=== PATIENT | male | born 1970 | race Caucasian/White ===

== ENCOUNTER 2019-07-28 05:24 | Inpatient (IN) ==
[2019-07-24 09:02] LABS: HEMATOCRIT 47.2 % (42.0-52.0); HEMOGLOBIN 15.5 g/dL (14.0-18.0); MCH 29.2 PG (27-31); MCHC 32.8 g/dL (33-37); MCV 89.1 FL (81-99); MPV 9.2 FL (7.4-10.4); RBC 5.3 XMIL (4.7-6.1); RDW 14.2 % (11.5-14.5); WBC 8.88 X1000 (4.8-10.8)
--- NOTE | 2019-07-24 09:13 | EKG Report ---
Test Performed on : 07/24/2019 08:47:43 AM Test Reason : pat Blood Pressure : / mmHG Vent. Rate : 089 BPM Atrial Rate : 089 BPM P-R Int : 176 ms QRS Dur : 082 ms QT Int : 338 ms P-R-T Axes : 060 050 038 degrees QTc Int : 411 ms Normal sinus rhythm. Nonspecific ST and T wave abnormality Abnormal ECG No previous ECGs available Confirmed by Austin Mars MD ([id number]) on 07/26/2019 5:12:43 PM
[2019-07-24 09:21] LABS: AGAP 10; BUN 18 mg/dL (8-22); CALCIUM 9.3 mg/dL (8.8-10.2); CHLORIDE 103 mmol/L (98-107); COSMO 279; ESTIMATED GFR > 60; GLUCOSE 94 mg/dL (70-104); SODIUM 139 mmol/L (136-145); TCO2 26 mmol/L (25-35)
[2019-07-28] MEDS ORDERED: LR 1,000 ML ONE ×2 (05:47→06:30)
[2019-07-28] MEDS ORDERED: PEPCID ONE (05:47)
[2019-07-28] MEDS ORDERED: KEFZOL 1 GM/D5W 2 GM/100 ML IVPB ONE (05:47)
[2019-07-28] MEDS ORDERED: REGLAN ONE (05:47)
[2019-07-28] MEDS ORDERED: HURRICAINE SPRAY (DOSE) ONE (06:02)
[2019-07-28] MEDS ORDERED: NIMBEX ONE (06:03)
[2019-07-28] MEDS ORDERED: LUBRIFRESH PM OPH OINTMENT ONE (06:04)
[2019-07-28] MEDS ORDERED: XYLOCAINE-MPF 2% ONE ×2 (06:17→07:29)
[2019-07-28] MEDS ORDERED: ROBINUL ONE ×2 (06:17→07:20)
[2019-07-28] MEDS ORDERED: QUELICIN (DOSE) ONE ×2 (06:18→06:49)
[2019-07-28] MEDS ORDERED: FENTANYL ONE (06:19)
[2019-07-28] MEDS ORDERED: VERSED ONE (06:19)
[2019-07-28] MEDS ORDERED: DIPRIVAN 1% ONE (06:20)
[2019-07-28] MEDS ORDERED: MARCAINE 0.25% PF/EPI 1:200,000 ONE (06:30)
[2019-07-28] MEDS ORDERED: DECADRON ONE ×2 (07:12→07:27)
[2019-07-28] MEDS ORDERED: ZOFRAN ONE (07:12)
[2019-07-28] MEDS ORDERED: DILAUDID ONE (07:16)
[2019-07-28] MEDS ORDERED: PHENERGAN ONE (07:18)
[2019-07-28] MEDS ORDERED: NEOSTIGMINE ONE (07:20)
[2019-07-28] MEDS ORDERED: SODIUM CHLORIDE 0.9% 10 ML ONE (07:25)
[2019-07-28] MEDS ORDERED: EPHEDRINE ONE (07:25)
[2019-07-28 08:19] LABS: URINE SOURCE CATH
[2019-07-28 08:25] LABS: BILIRUBIN URINE NEGATIVE (NEGATIVE); BLOOD URINE NEGATIVE (NEGATIVE); COLOR YELLOW; GLUCOSE URINE NEGATIVE (NEGATIVE); KETONE URINE 10 mg/dL (NEGATIVE); LEUKOCYTES URINE NEGATIVE (NEGATIVE); NITRITE URINE NEGATIVE (NEGATIVE); PROTEIN URINE TRACE mg/dL (NEGATIVE); SP GRAVITY URINE 1.023; TURBIDITY URINE TURBID (CLEAR); UROBILINOGEN URINE NORMAL (NORMAL)
[2019-07-28 08:26] LABS: UR EPITHELIAL CELLS <10 /HPF (<10); URINE BACTERIA NEGATIVE /HPF; URINE RBC <10 /HPF (<10); URINE WBC <10 /HPF (<10)
[2019-07-28] MEDS ORDERED: OFIRMEV 1000 MG/ISOTONIC SOLN 1,000 MG/100 ML BOTTLE ONE (11:41)
[2019-07-28] MEDS ORDERED: NS 1,000 ML ONE (13:09)
[2019-07-28] MEDS ORDERED: LABETALOL ONE (13:26)
--- NOTE | 2019-07-28 13:30 | OPERATIVE NOTE ---
PROCEDURE DATE: 07/28/2019 SURGEON: Loyd Rene MD PREOPERATIVE DIAGNOSIS: Large left renal mass. POSTOPERATIVE DIAGNOSIS: Large left renal mass. PROCEDURE PERFORMED: Laparoscopic robot-assisted left radical nephrectomy. ANESTHESIA: General endotracheal. FINDINGS: Large left renal mass that involved the whole upper half of the kidney and had pushed the kidney medially. INDICATION FOR PROCEDURE: This 49-year-old male was having abdominal pain. A CT scan revealed a large left renal mass. DESCRIPTION OF PROCEDURE: After informed consent was obtained from the patient and him receiving IV antibiotics, he was taken to the main OR, and placed in the supine position. General endotracheal anesthesia was achieved. He was then bumped up to about 45 degrees with gel rolls placed under his left shoulder and lower back. He was then fixed to the so the table could be rotated to the left or to the right without the patient moving. The bed was flexed to about 30 degrees. The patient had a Curtis catheter passed through the patient's urethra and prostate and in the bladder without difficulty. After the patient was fixed to the table and the catheter placed he was prepped and draped in the usual sterile fashion for abdominal and left flank surgery. The patient was rotated all the way to his left. The robot trocars were placed with the camera port about 10 cm above the umbilicus to the left at about the edge of the abdominal rectus muscle because of his obesity. An incision was made and the Veress needle was then used to achieve pneumoperitoneum. The Visiport was used to place a 12 mm port. The camera was placed and robot trocars were placed with the #2 arm at about the midclavicular line just below the ribcage. The #1 arm was placed just below the umbilicus in line with the #1 arm. The 4th arm was placed just above the left anterior superior iliac spine. The patient was then rotated such that he was in a flank position with the left side up. The robot was docked. The procedure was started by taking down the abdominal wall adhesions. The colon was reflected medially. The patient had a large amount of adipose tissue throughout his abdomen. After the colon was completely reflected the spleeno-colic ligament was taken down such that the spleen rotated medially. The 4th arm was then used to pull up the area of the lower pole and dissection was started towards the psoas muscle. The psoas muscle was never found with this dissection because of the significant amount of adipose tissue. The gonadal vein and the ureter was not visualized either. The dissection was then started back close to the pelvic brim where the psoas muscle was visualized and dissection proceeded towards the renal hilum. The 4th arm was used to elevate the kidney off the psoas muscle and the ureter or gonadal vein was never visualized. The 4th arm was placed under the kidney above what appeared to be the area of the renal pedicle. The adipose tissue was dissected off of this area and the renal vein was visualized. The renal vein was completely exposed showing the gonadal vein and the adrenal vein emptying into the renal vein. An area of what appeared to be the renal artery that was consistent but with what was visualized on the CT scan was dissected. The vessel was completely dissected free and encircled with a vessel loop. A vascular stapler was attempted to be used without success. Hem-o-snow clips were placed to occlude this vessel. A ESPERANZA vascular stapler was used to take the vein. The kidney was then dissected more off the psoas muscle up past the pedicle. It was realized then that the artery was not visualized and it was realized that the clips were placed on the right renal artery. These were able to be removed by the breaking of the clips. The right renal artery appeared normal after the clips were removed. Attention was then turned back to the left kidney. It had become very ischemic. The kidney was dissected off the psoas muscle and taking the adrenal gland as well. Care was taken to stay away from the pancreas and spleen and the upper pole where the mass was located was dissected free leaving a layer of adipose tissue all around the mass. The ureter was found and taken down with a clip. The kidney was completely dissected free. The 4th arm was removed and a grasper was placed through the fourth arm port and the kidney was grasped at the hilum with the locking grasper. The right renal artery was again visualized and appeared to be normal. The staple line appeared to have a small amount of vessel loop in the staple line. This was able to be dissected free in that it was not part of the jimbo that occluded the renal vein. This small segment was passed off the field. The area was again searched and no further vessel loop was seen. On the aorta what appeared to be the stump of the renal artery appeared to have been included in the vein staple. A clip was placed at the takeoff of this artery without problems to re-ensure the staple line was complete. The left renal bed was irrigated and the irrigant removed. Surgicel Snow was placed across the vascular pedicle. The robot trocars were then removed leaving the 4th trocar in place with the grasping forceps holding the kidney. The robot was undocked and the patient was returned to the supine position and pneumoperitoneum resolved. The assistant food service manager port which was located above the umbilicus was extended to the left side of the umbilicus and then down to the midline of the abdomen for a distance of about 5 cm. The skin, subcutaneous tissue, and abdominal rectus fascia was incised using the Bovie electrocautery cutting on the surgeon's finger and then between the 2 fingers when this space was large enough. The surgeon's hand was then used to grasp the kidney as it met the grasper. It was pulled over to the opening in the grasper was released and the kidney removed and sent to Pathology. The abdominal rectus fascia was reapproximated with a running stitch sutures of #1 Maxon. The subcutaneous tissue was reapproximated with interrupted sutures of 3-0 Vicryl. The skin was reapproximated with clips. The robot port incisions were reapproximated with clips. Island dressings were placed. He tolerated the procedure well. Estimated blood loss was 75 mL. He was extubated and taken to the recovery room in good condition. cc: Loyd Rene MD [facility]
[2019-07-28] MEDS ORDERED: MORPHINE IV PRN (14:53)
[2019-07-28] MEDS ORDERED: BENADRYL IV PRN (15:00)
[2019-07-28] MEDS ORDERED: PHENERGAN IV PRN (15:00)
[2019-07-28] MEDS ORDERED: LABETALOL IV PRN (15:00)
[2019-07-28] MEDS ORDERED: SODIUM CHLORIDE 0.9% INJ PRN (15:00)
[2019-07-28] MEDS ORDERED: OXY IR PO PRN (15:00)
[2019-07-28] MEDS: KEFZOL 2 GM/D5W 2 GM/50 ML IVPB IV SCH ×2 (16:38→22:26)
[2019-07-28] MEDS ORDERED: OFIRMEV 1000 MG/ISOTONIC SOLN 1,000 MG/100 ML BOTTLE IV PRN (17:00)
[2019-07-28] MEDS: TRINTELLIX PO SCH (22:25)
[2019-07-28] MEDS: KLONOPIN PO SCH (22:25)
[2019-07-28] MEDS: COLACE PO SCH (22:25)
[2019-07-28] MEDS: PERIDEX MT SCH (22:25)
[2019-07-28] MEDS: OXY IR PO PRN (22:26)
[2019-07-28] MEDS: PEPCID PO SCH (22:37)
[2019-07-28] MEDS: NS 1,000 ML IV SCH (22:37)
[2019-07-29 06:40] LABS: HEMATOCRIT 42.4 % (42.0-52.0); MCH 29.7 PG (27-31); MPV 9.8 FL (7.4-10.4); RBC 4.71 XMIL (4.7-6.1); RDW 14.2 % (11.5-14.5); WBC 11.68 X1000 (4.8-10.8)
[2019-07-29 07:02] LABS: CALCIUM 8.8 mg/dL (8.8-10.2); CREATININE 1.6 mg/dL (0.7-1.2); POTASSIUM 4.1 mmol/L (3.5-5.1)
[2019-07-29] MEDS: OXY IR PO PRN ×4 (07:05→23:53)
[2019-07-29] MEDS: PERIDEX MT SCH ×3 (08:26→21:08)
[2019-07-29] MEDS: REGLAN PO SCH (08:26)
[2019-07-29] MEDS: PEPCID PO SCH ×3 (08:27→21:08)
[2019-07-29] MEDS: COZAAR PO SCH (08:27)
[2019-07-29] MEDS: PATIENT'S OWN MED PO SCH (08:29)
[2019-07-29] MEDS: COLACE PO SCH ×3 (08:35→21:08)
[2019-07-29] MEDS: NS 1,000 ML IV SCH ×3 (12:53→21:08)
[2019-07-29] MEDS: TRINTELLIX PO SCH ×2 (19:42→21:08)
[2019-07-29] MEDS: KLONOPIN PO SCH ×2 (19:42→21:08)
[2019-07-30] MEDS: OXY IR PO PRN (05:59)
[2019-07-30 06:47] LABS: BASO# 0.02 X1000 (0.0-0.2); BASO% 0.2 % (0.0-0.8); EOS# 0.24 X1000 (0.0-0.7); EOS% 1.8 % (0.0-10.0); HEMATOCRIT 43.6 % (42.0-52.0); HEMOGLOBIN 14.1 g/dL (14.0-18.0); IMM GRAN# 0.03 X1000 (0.0-0.04); IMM GRAN% 0.2 % (0.0-0.5); LYMPH# 1.93 X1000 (1.2-3.4); LYMPH% 14.7 % (20.5-51.1); MCHC 32.3 g/dL (33-37); MCV 89.5 FL (81-99); MONO# 1.68 X1000 (0.11-0.59); MONO% 12.8 % (1.7-9.3); MPV 10.1 FL (7.4-10.4); NEUT# 9.21 X1000 (1.4-6.5); NEUT% 70.3 % (42.2-75.2); PLT 308 X1000 (130-400); RBC 4.87 XMIL (4.7-6.1); RDW 14.3 % (11.5-14.5); WBC 13.11 X1000 (4.8-10.8)
[2019-07-30 07:15] LABS: CALCIUM 8.8 mg/dL (8.8-10.2); CREATININE 1.5 mg/dL (0.7-1.2); POTASSIUM 3.9 mmol/L (3.5-5.1)
[2019-07-30] MEDS: NS 1,000 ML IV SCH (07:16)
[2019-07-30 07:45] VITALS: BP 127/71
[2019-07-30] MEDS: PERIDEX MT SCH (08:13)
[2019-07-30] MEDS: REGLAN PO SCH (08:13)
[2019-07-30] MEDS: COLACE PO SCH (08:13)
[2019-07-30] MEDS: PEPCID PO SCH (08:13)
[2019-07-30] MEDS: COZAAR PO SCH (08:13)
[2019-07-30] MEDS: PATIENT'S OWN MED PO SCH (08:17)
== END 2019-07-30 10:09 | disposition home or self-care (01) | DRG 657 ==
LOC: SURHOLD 05:24 → EDSTATUS 07:00 → 4N 07:17
PROVIDERS: ADMIT Urology; ATTEND Urology